=== PATIENT | female | born 1945 | race Caucasian/White ===

== ENCOUNTER 2019-12-09 08:35 | Observation (INO) ==
[2019-12-09] MEDS ORDERED: *HR* FentaNYL (PF) 100 MCG/2 ML VIAL IVP PRN (09:12)
[2019-12-09] MEDS ORDERED: *HR* Promethazine 25 MG/ML VIAL IVP PRN (09:12)
[2019-12-09] MEDS ORDERED: Ondansetron 4 MG/2 ML VIAL IVP ONE (09:12)
[2019-12-09] MEDS ORDERED: Albuterol 2.5 MG/3 ML NEBULIZER IH PRN (09:12)
[2019-12-09] MEDS ORDERED: Ringers Solution, Lactated 1,000 ML IVC SCH (09:15)
[2019-12-09] MEDS ORDERED: *HR* Propofol 200 MG/20 ML VIAL IVP ONE (09:23)
[2019-12-09] MEDS ORDERED: *HR* Midazolam HCl 2 MG/2 ML VIAL ONE (09:23)
[2019-12-09] MEDS ORDERED: Lidocaine -MPF 2% 2 ML VIAL ONE (09:24)
[2019-12-09] MEDS ORDERED: *HR* Succinylcholine 200 MG/10 ML VIAL IVP ONE (09:24)
[2019-12-09] MEDS ORDERED: Ondansetron 4 MG/2 ML VIAL ONE (09:26)
[2019-12-09] MEDS ORDERED: Dexamethasone 4 MG/ML VIAL ONE (09:26)
[2019-12-09] MEDS ORDERED: *HR* EPINEPHrine 1 MG/10 ML SYRINGE INTRATRACH PRN (10:23)
[2019-12-09] MEDS ORDERED: *HR* Labetalol 100 MG/20 ML MDV ONE (10:45)
[2019-12-09] MEDS ORDERED: Naloxone 0.4 MG/ML INJ IVP PRN (11:05)
[2019-12-09 12:19] LABS: Prothrombin Time 10.9 Seconds (9.4-12.1)
[2019-12-09 12:21] LABS: Activated Partial Thrombo Time 29.6 Seconds (26.0-36.0); Basophils % 0.5 %; Eosinophils % 0.2 %; Hematocrit 44.2 % (35.3-44.9); Hemoglobin 13.3 g/dL (11.5-15.4); Immature Granulocytes % 0.5 % (0-4); Lymphocytes % 15.9 %; Mean Corpuscular HGB Conc 30.1 g/dL (31.6-35.5); Mean Corpuscular Hemoglobin 28.8 pg (28.0-33.3); Mean Corpuscular Volume 95.7 fL (83.0-100.0); Mean Platelet Volume 10.6 fL (9.4-12.4); Monocytes # 0.2 K/mcL (0.0-1.3); Monocytes % 2.6 %; Neutrophils # 5.2 K/mcL (1.6-8.9); Platelet Count 179 K/mcL (140-400); Red Blood Count 4.62 M/mcL (3.82-4.97); Red Cell Distribution Width 14.4 % (11.5-14.5); Segmented Neutrophils % 80.3 %; White Blood Count 6.5 K/mcL (4.3-11.1)
[2019-12-09 12:38] LABS: Alanine Aminotransferase 10 Units/L (7-52); Albumin 3.6 g/dL (3.5-5.7); Albumin/Globulin Ratio 1.4 (1.1-2.2); Alkaline Phosphatase 68 Units/L (34-104); Aspartate Amino Transferase 13 Units/L (13-39); BUN/Creatinine Ratio 11 (6-26); Bilirubin,Total 0.4 mg/dL (0.3-1.0); Blood Urea Nitrogen 11 mg/dL (8-23); Calcium 8.7 mg/dL (8.6-10.3); Carbon Dioxide 25 mEq/L (23-29); Chloride 108 mEq/L (98-107); Globulin 2.5 g/dL (2.4-3.5); Glucose 124 mg/dL (70-105); Magnesium 1.5 mg/dL (1.6-2.6); Osmolality,Calculated 293 (280-300); Potassium 3.8 mEq/L (3.5-5.1); Sodium 141 mEq/L (136-145); Total Protein 6.1 g/dL (6.4-8.9); Troponin I < 0.03 ng/mL (< 0.04); eGFR For African Americans > 60 (> 60); eGFR For Non-African Americans 55 (> 60)
[2019-12-09] MEDS ORDERED: Acetaminophen 325 MG TABLET PO PRN (13:32)
[2019-12-09] MEDS ORDERED: Ondansetron ODT 4 MG TAB.RAPDIS SL PRN (13:32)
[2019-12-09] MEDS: MethylPREDNISolone 40 MG/ML VIAL IVP SCH ×2 (15:56→23:52)
[2019-12-09] MEDS: Ipratropium/Albuterol Neb 3 ML IH SCH ×2 (16:22→23:04)
[2019-12-09 16:27] LABS: ABG Base Excess 0 mEq/L (-2 to 3); ABG HCO3 25 mEq/L (21-27); ABG Oxygen Saturation 96 % (95-98); ABG PCO2 41 mmHg (35-45); ABG PO2 86 mmHg (85-104); ABG TCO2 26 mEq/L (20-26)
[2019-12-09 16:39] LABS: Appearance of Body Fluid Cloudy (Clear); Source of Body Fluid RIGHT UPPER LOBE LUN; Volume of Body Fluid 9 mL
[2019-12-09] MEDS ORDERED: Budesonide/Formoterol 160/4.5 1 PUFF INH IH SCH (22:00)
[2019-12-10] MEDS: Ipratropium/Albuterol Neb 3 ML IH SCH (04:20)
[2019-12-10 06:43] VITALS: BP 110/48
[2019-12-10 06:51] LABS: Hematocrit 41.9 % (35.3-44.9); Hemoglobin 13.1 g/dL (11.5-15.4); Mean Corpuscular HGB Conc 31.3 g/dL (31.6-35.5); Mean Corpuscular Hemoglobin 29.7 pg (28.0-33.3); Mean Platelet Volume 10.8 fL (9.4-12.4); Platelet Count 177 K/mcL (140-400); Red Blood Count 4.41 M/mcL (3.82-4.97); Red Cell Distribution Width 14.4 % (11.5-14.5)
[2019-12-10 06:52] LABS: White Blood Count 13.8 K/mcL (4.3-11.1)
[2019-12-10 07:01] LABS: BUN/Creatinine Ratio 19 (6-26); Blood Urea Nitrogen 20 mg/dL (8-23); Calcium 8.9 mg/dL (8.6-10.3); Carbon Dioxide 24 mEq/L (23-29); Chloride 106 mEq/L (98-107); Glucose 159 mg/dL (70-105); Osmolality,Calculated 296 (280-300); Potassium 3.4 mEq/L (3.5-5.1); Sodium 140 mEq/L (136-145); eGFR For African Americans > 60 (> 60); eGFR For Non-African Americans 51 (> 60)
[2019-12-10] MEDS: MethylPREDNISolone 40 MG/ML VIAL IVP SCH (08:45)
[2019-12-10] MEDS ORDERED: cloNIDine HCL 0.1 MG TABLET PO SCH (09:00)
== END 2019-12-10 10:02 | disposition home or self-care (01) ==
LOC: SAMDAY 08:35 → 3BNU 08:35
PROVIDERS: ADMIT Family Medicine; ATTEND Family Medicine